=== PATIENT | male | born 1975 | race African-American/Black ===

== ENCOUNTER 2024-03-28 11:27 | Emergency (ER) | payer MEDICAID ==
[~2024-03-28] VITALS: Ht 193 cm; Wt 87.0 kg
[2024-03-28 11:30] VITALS: O2SAT 99
[2024-03-28] MEDS: ACETAMINOPHEN 325MG TABLET PO ONE (12:08)
[2024-03-28] MEDS: IBUPROFEN 600MG TABLET PO ONE (13:11)
[2024-03-28] MEDS: TETRACAINE 0.5% OPHTH DROPS 4ML RIGHTEYE ONE (14:12)
[2024-03-28] MEDS ORDERED: NAPR220C61 MT (14:22)
[2024-03-28 14:28] VITALS: BP 138/95; PULSE 66; RESP 16; TEMP 36.83628; O2SAT 98
== END 2024-03-28 15:09 | disposition home or self-care (01) ==
LOC: ER 11:44
DX: R51.9 Headache, unspecified (principal)
CPT/HCPCS: 99284